=== PATIENT | female | born 1970 | race Hispanic/Latino ===

== ENCOUNTER 2020-07-26 | Emergency (ER) | payer SELFPAY ==
[~2020-07-26] MED LIST: ASPIRIN81 MG PO; GLIMEPIRIDE2 MG PO; KEFLEX500 M1 PO; LISINOPRIL5 MG PO; METFORMIN1000 MG PO; MULTIVITAMIN PO; PRILOSEC40 MG PO; ULTRAM50 M1 PO
[2020-07-26] MEDS ORDERED: FOLIC ACID1 MG PO (08:40)
[2020-07-26] MEDS ORDERED: GABAPENTIN100 MG PO (08:41)
[2020-07-26] MEDS ORDERED: CELEBREX100 M1 PO (08:41)
[2020-07-26 08:51] LABS: HEMATOCRIT 32.5 % (37.0-47.0); IMMATURE GRANULOCYTES 0.3 % (0.0-5.0); MEAN CORPUSCULAR HGB 22.5 pG CALC (26.0-32.0); MEAN CORPUSCULAR HGB CONC 30.2 g/dL CAL (32.0-36.0); NEUT# 4.53 thou/uL (2.00-7.15); RED BLOOD COUNT 4.36 mill/uL (4.20-5.60); RED CELL DISTRI WIDTH 18.9 % (11.5-15.5)
[2020-07-26 08:56] LABS: URINE BILIRUBIN - DIPSTICK NEGATIVE (NEGATIVE); URINE BLOOD DIPSTICK NEGATIVE (NEGATIVE); URINE COLOR YELLOW; URINE GLUCOSE - DIPSTICK >=1000 mg/dL (NEGATIVE); URINE KETONE NEGATIVE (NEGATIVE); URINE LEUK ESTERASE NEGATIVE (NEGATIVE); URINE PH 6.5 (4.5-8.0); URINE PROTEIN - DIPSTICK NEGATIVE (NEG-TRACE); URINE SPECIFIC GRAVITY <=1.005; URINE UROBILINOGEN - DIPSTICK 0.2 E.U./dL (0.2)
[2020-07-26 08:58] LABS: URINE NITRITE - DIPSTICK NEGATIVE (Negative)
[2020-07-26 08:59] LABS: HEMOGLOBIN 9.8 g/dl (12.0-16.0); MEAN CELL VOLUME 74.5 fL CALC (80.0-100.0)
[2020-07-26 09:10] LABS: ALBUMIN 4.6 g/dL (3.2-5.0); ALKALINE PHOSPHATASE 124 u/l (38-126); BILIRUBIN, TOTAL 0.7 mg/dL (0.0-1.4); BUN 9 mg/dL (7-17); BUN/CREATININE RATIO 27 (12-20 (CALC)); CHLORIDE 96 mmol/l (95-108); CREATININE 0.3 mg/dL (0.5-1.0); GFR > 60 ML/MIN (>=60 (CALC)); GFR FOR AFR.AMER. > 60 ML/MIN (>=60 (CALC)); POTASSIUM 4.2 mmol/l (3.5-5.1); SGOT/AST 22 u/l (14-36); SODIUM 132 mmol/l (137-146)
[2020-07-26 09:11] LABS: ANION GAP 12 (6-22 (CALC)); CARBON DIOXIDE 28 mmol/l (22-30)
[2020-07-26] MEDS ORDERED: AMOXICILLIN875 MG PO (09:30)
[2020-07-26] MEDS ORDERED: ULTRAM50 MG PO (09:30)
== END 2020-07-26 09:49 | disposition home or self-care (01) | DRG 153 ==
DX: J02.9 Acute pharyngitis, unspecified (principal); E11.65 Type 2 diabetes mellitus with hyperglycemia; M79.672 Pain in left foot; M79.671 Pain in right foot; M79.605 Pain in left leg; M79.604 Pain in right leg; M79.602 Pain in left arm; M79.601 Pain in right arm; M25.562 Pain in left knee; M25.561 Pain in right knee; Z79.84 Long term (current) use of oral hypoglycemic drugs; Z20.822 Contact with and (suspected) exposure to COVID-19

== ENCOUNTER 2022-07-29 17:24 | Emergency (ER) | payer SELFPAY ==
[2022-07-29] VITALS (15 sets, daily range): BP systolic 88–120; BP diastolic 51–104
[~2022-07-29] VITALS: Ht 157.5 cm; Wt 63.6 kg
[~2022-07-29 17:24] MED LIST changes: +AMOXICILLIN875 MG PO; +CELEBREX100 M1 PO; +FOLIC ACID1 MG PO; +GABAPENTIN100 MG PO; +ULTRAM50 MG PO
[2022-07-29 19:18] LABS: BASO% 0.2 % (0-3); EOS% 2.7 % (0-8); IMMATURE GRANULOCYTES 0.2 % (0.0-5.0); LYMPH% 33.7 % (15-41); MEAN CORPUSCULAR HGB 26.2 pG CALC (26.0-32.0); MEAN CORPUSCULAR HGB CONC 31.7 g/dL CAL (32.0-36.0); MONO% 8.1 % (2-13); NEUT# 2.85 thou/uL (2.00-7.15); NEUT% 55.1 % (42-76); RED BLOOD COUNT 4.96 mill/uL (4.20-5.60); RED CELL DISTRI WIDTH 16.7 % (11.5-15.5)
[2022-07-29 19:31] LABS: MEAN CELL VOLUME 82.7 fL CALC (80.0-100.0)
[2022-07-29 19:45] LABS: ALBUMIN 4.9 g/dL (3.2-5.0); ALKALINE PHOSPHATASE 112 u/l (38-126); BILIRUBIN, TOTAL 0.6 mg/dL (0.02-1.3); BUN 13 mg/dL (7-17); BUN/CREATININE RATIO 22 (12-20 (CALC)); CHLORIDE 102 mmol/l (95-108); CREATININE 0.6 mg/dL (0.5-1.0); GFR FOR AFR.AMER. > 60 ML/MIN (>=60 (CALC)); GFR OTHER RACES > 60 ML/MIN (>=60 (CALC)); LIPASE 84 u/l (23-300); POTASSIUM 4.3 mmol/l (3.5-5.1); SODIUM 135 mmol/l (137-146); TOTAL PROTEIN 8.9 g/dL (6.3-8.2)
[2022-07-29 19:51] LABS: ANION GAP 16 (6-22 (CALC)); CARBON DIOXIDE 21 mmol/l (22-30); SGOT/AST 44 u/l (14-36)
[2022-07-29 21:08] LABS: URINE BILIRUBIN - DIPSTICK NEGATIVE (NEGATIVE); URINE BLOOD DIPSTICK NEGATIVE (NEGATIVE); URINE COLOR YELLOW; URINE GLUCOSE - DIPSTICK >=1000 mg/dL (NEGATIVE); URINE KETONE NEGATIVE (NEGATIVE); URINE LEUK ESTERASE NEGATIVE (NEGATIVE); URINE PROTEIN - DIPSTICK NEGATIVE (NEG-TRACE); URINE SPECIFIC GRAVITY <=1.005; URINE UROBILINOGEN - DIPSTICK 0.2 E.U./dL (0.2)
[2022-07-29 21:12] LABS: URINE NITRITE - DIPSTICK POSITIVE (Negative)
[2022-07-29 21:20] LABS: URINE BACTERIA RARE hpf; URINE RBC 0-2 RBC/hpf (0-5); URINE SQUAMOUS EPITHELIAL CELL RARE EPI/hpf (0-FEW); URINE WBC 0-2 WBC/hpf (0-5)
--- NOTE | 2022-07-31 17:01 | NUR ---
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 Pt states no new symptoms and she already as follow up appointment schedule with per primary doctor.
--- NOTE | 2022-08-01 10:44 | NUR ---
FINAL BLOOD CULTURE SHOWS STAPH CAPITIS IN 1/4 VIALS. NO CHANGES NEEDED. Patient reports feeling better.
== END 2022-07-29 23:30 | disposition home or self-care (01) | DRG 392 ==
LOC: ED 17:24
PROVIDERS: Nurse Practitioner
DX: R11.2 Nausea with vomiting, unspecified (principal); R19.7 Diarrhea, unspecified; E11.9 Type 2 diabetes mellitus without complications; Z79.84 Long term (current) use of oral hypoglycemic drugs
CPT/HCPCS: Q9967

== ENCOUNTER 2023-11-20 15:56 | Inpatient (IN) | payer SELFPAY ==
[~2023-11-20] VITALS: Ht 157.5 cm; Wt 82.5 kg
[2023-11-20] MEDS ORDERED: SODIUM CHLORIDE 0.9% 1,000 ML IV ONE ×3 (16:40→21:00)
[2023-11-20] MEDS ORDERED: KETOROLAC TROMETHAMINE 30 MG/ML SDV IV ONE (16:40)
[2023-11-20] MEDS ORDERED: ACETAMINOPHEN 500 MG TAB PO ONE (16:40)
[2023-11-20 16:50] LABS: BASO% 0.1 % (0-3); EOS% 0.4 % (0-8); HEMATOCRIT 36.5 % (37.0-47.0); HEMOGLOBIN 11.8 g/dl (12.0-16.0); IMMATURE GRANULOCYTES 0.3 % (0.0-5.0); LYMPH% 14.2 % (15-41); MEAN CELL VOLUME 81.5 fL CALC (80.0-100.0); MEAN CORPUSCULAR HGB 26.3 pG CALC (26.0-32.0); MEAN CORPUSCULAR HGB CONC 32.3 g/dL CAL (32.0-36.0); NEUT# 5.79 thou/uL (2.00-7.15); RED BLOOD COUNT 4.48 mill/uL (4.20-5.60); RED CELL DISTRI WIDTH 15.7 % (11.5-15.5); URINE BILIRUBIN - DIPSTICK Negative (NEGATIVE); URINE BLOOD DIPSTICK Trace-intact (NEGATIVE); URINE GLUCOSE - DIPSTICK 500 mg/dL (NEGATIVE); URINE KETONE 40 mg/dL (NEGATIVE); URINE LEUK ESTERASE Negative (NEGATIVE); URINE NITRITE - DIPSTICK Negative (Negative); URINE PROTEIN - DIPSTICK Negative (NEG-TRACE); URINE UROBILINOGEN - DIPSTICK 0.2 E.U./dL (0.2)
[2023-11-20 16:51] LABS: URINE COLOR Yellow
[2023-11-20 17:01] LABS: ALBUMIN 4.6 g/dL (3.2-5.0); BILIRUBIN, TOTAL 0.6 mg/dL (0.02-1.3); CREATININE 0.5 mg/dL (0.5-1.0); POTASSIUM 3.4 mmol/l (3.5-5.1); TOTAL PROTEIN 8.7 g/dL (6.3-8.2)
[2023-11-20] MEDS ORDERED: cefTRIAXone SODIUM 2 GM in SODIUM CHLORIDE 0.9% 100 ML IV ONE (18:25)
[2023-11-20] MEDS ORDERED: LACTATED RINGER'S 1,000 ML IV PRN (20:50)
[2023-11-20] MEDS ORDERED: ACETAMINOPHEN 325 MG/TAB PO PRN (20:55)
[2023-11-20] MEDS ORDERED: SODIUM CHLORIDE 0.9% 1,000 ML IV PRN (20:55)
[2023-11-20] MEDS ORDERED: MAGNESIUM HYDROXIDE 30 ML UDC PO PRN (20:55)
[2023-11-20] MEDS ORDERED: DEXTROSE 250 ML IV PRN (20:55)
[2023-11-20] MEDS ORDERED: ENOXAPARIN SODIUM 40 MG/0.4 ML SYR SC SCH (21:00)
[2023-11-20] MEDS ORDERED: INSULIN LISPRO 100 UNITS/ML ML SC SCH (21:00)
[2023-11-20 21:50] VITALS: BP 116/60
[2023-11-20 23:15] VITALS: BP 125/55
[2023-11-21 03:36] VITALS: BP 83/36
[2023-11-21 03:37] VITALS: BP 91/39
[2023-11-21 07:09] VITALS: BP 102/59
[2023-11-21] MEDS ORDERED: GABAPENTIN 100 MG/CAP PO SCH (09:00)
[2023-11-21 09:47] LABS: HEMATOCRIT 34.8 % (37.0-47.0); HEMOGLOBIN 10.9 g/dl (12.0-16.0); MEAN CELL VOLUME 83.9 fL CALC (80.0-100.0); MEAN CORPUSCULAR HGB 26.3 pG CALC (26.0-32.0); MEAN CORPUSCULAR HGB CONC 31.3 g/dL CAL (32.0-36.0); RED BLOOD COUNT 4.15 mill/uL (4.20-5.60); RED CELL DISTRI WIDTH 16.1 % (11.5-15.5)
[2023-11-21 10:35] LABS: ALBUMIN 3.8 g/dL (3.2-5.0); BILIRUBIN, TOTAL 0.8 mg/dL (0.02-1.3); CREATININE 0.4 mg/dL (0.5-1.0); POTASSIUM 3.3 mmol/l (3.5-5.1); TOTAL PROTEIN 7.4 g/dL (6.3-8.2)
[2023-11-21 10:55] LABS: C-REACTIVE PROTEIN 19.6 mg/dL (0-0.9)
[2023-11-21 11:12] VITALS: BP 100/53
[2023-11-21] MEDS ORDERED: POTASSIUM CHLORIDE 20 MEQ/TAB PO SCH (11:30)
[2023-11-21] MEDS ORDERED: VANCOMYCIN HCL 1 GM in SODIUM CHLORIDE 0.9% 250 ML IV SCH (12:00)
[2023-11-21 15:02] VITALS: BP 116/62
[2023-11-21] MEDS ORDERED: cefTRIAXone SODIUM 2 GM in SODIUM CHLORIDE 0.9% 100 ML IV SCH (18:00)
[2023-11-21 18:33] VITALS: BP 139/70
[2023-11-22] VITALS (8 sets, daily range): BP systolic 108–133; BP diastolic 53–65
[2023-11-22 04:55] LABS: HEMATOCRIT 36.7 % (37.0-47.0); HEMOGLOBIN 11.3 g/dl (12.0-16.0); MEAN CELL VOLUME 86.8 fL CALC (80.0-100.0); MEAN CORPUSCULAR HGB 26.7 pG CALC (26.0-32.0); MEAN CORPUSCULAR HGB CONC 30.8 g/dL CAL (32.0-36.0); RED BLOOD COUNT 4.23 mill/uL (4.20-5.60); RED CELL DISTRI WIDTH 16.2 % (11.5-15.5)
[2023-11-22 05:12] LABS: BILIRUBIN, TOTAL 0.5 mg/dL (0.02-1.3); CREATININE 0.4 mg/dL (0.5-1.0); MAGNESIUM 1.7 mg/dL (1.6-2.3); TOTAL PROTEIN 7.5 g/dL (6.3-8.2)
[2023-11-22 05:22] LABS: POTASSIUM 4.2 mmol/l (3.5-5.1)
[2023-11-22] MEDS ORDERED: DIATRIZOATE MEGLUMINE & SODIUM 30 ML/BTL BTL PO SCH (10:00)
[2023-11-22] MEDS ORDERED: PIPERACILLIN Sodium-Tazobactam 4.5 GM in SODIUM CHLORIDE 0.9% 100 ML IV SCH (12:00)
[2023-11-22 18:50] LABS: ALBUMIN 3.7 g/dL (3.2-5.0); BILIRUBIN, TOTAL 0.5 mg/dL (0.02-1.3); CREATININE 0.6 mg/dL (0.5-1.0); TOTAL PROTEIN 7.2 g/dL (6.3-8.2)
[2023-11-23] VITALS (8 sets, daily range): BP systolic 117–153; BP diastolic 58–74
[2023-11-23 05:05] LABS: HEMATOCRIT 33.7 % (37.0-47.0); HEMOGLOBIN 10.6 g/dl (12.0-16.0); MEAN CELL VOLUME 82.4 fL CALC (80.0-100.0); MEAN CORPUSCULAR HGB 25.9 pG CALC (26.0-32.0); MEAN CORPUSCULAR HGB CONC 31.5 g/dL CAL (32.0-36.0); RED BLOOD COUNT 4.09 mill/uL (4.20-5.60); RED CELL DISTRI WIDTH 15.7 % (11.5-15.5)
[2023-11-23 05:29] LABS: ALBUMIN 3.6 g/dL (3.2-5.0); BILIRUBIN, TOTAL 0.6 mg/dL (0.02-1.3); CREATININE 0.4 mg/dL (0.5-1.0); MAGNESIUM 1.7 mg/dL (1.6-2.3); POTASSIUM 3.8 mmol/l (3.5-5.1)
[2023-11-23] MEDS ORDERED: IRON SUCROSE COMPLEX 200 MG in SODIUM CHLORIDE 0.9% 100 ML IV SCH (10:45)
[2023-11-23] MEDS ORDERED: cefTRIAXone SODIUM 2 GM in SODIUM CHLORIDE 0.9% 100 ML IV SCH (12:00)
[2023-11-24] VITALS: BP 131/69
[2023-11-24 04:00] VITALS: BP 141/74
[2023-11-24 04:12] VITALS: BP 141/74
[2023-11-24 05:20] LABS: BASO% 0.5 % (0-3); EOS% 1.3 % (0-8); HEMATOCRIT 32.5 % (37.0-47.0); HEMOGLOBIN 10.5 g/dl (12.0-16.0); IMMATURE GRANULOCYTES 0.3 % (0.0-5.0); LYMPH% 31.7 % (15-41); MEAN CELL VOLUME 81.9 fL CALC (80.0-100.0); MEAN CORPUSCULAR HGB 26.4 pG CALC (26.0-32.0); MEAN CORPUSCULAR HGB CONC 32.3 g/dL CAL (32.0-36.0); MONO% 12.9 % (2-13); NEUT# 2.1 thou/uL (2.00-7.15); NEUT% 53.3 % (42-76); RED BLOOD COUNT 3.97 mill/uL (4.20-5.60); RED CELL DISTRI WIDTH 15.8 % (11.5-15.5)
[2023-11-24 05:48] LABS: ALBUMIN 3.6 g/dL (3.2-5.0); BILIRUBIN, TOTAL 0.5 mg/dL (0.02-1.3); CREATININE 0.3 mg/dL (0.5-1.0); MAGNESIUM 1.7 mg/dL (1.6-2.3); POTASSIUM 3.8 mmol/l (3.5-5.1); TOTAL PROTEIN 6.9 g/dL (6.3-8.2)
[2023-11-24 06:54] VITALS: BP 136/71
[2023-11-24] MEDS ORDERED: LEVOFLOXACIN750 MG PO (09:37)
[2023-11-24 11:00] VITALS: BP 126/59
== END 2023-11-24 15:11 | disposition home or self-care (01) | DRG 872 ==
LOC: ED 15:56 → ED-I 18:35 → ED 18:50 → MS2 18:50
PROVIDERS: Family Medicine; Nurse Practitioner Family; ADMIT Internal Medicine; ATTEND Internal Medicine
DX: A41.51 Sepsis due to Escherichia coli [E. coli] (principal); E87.20 Acidosis, unspecified; R65.20 Severe sepsis without septic shock; I95.9 Hypotension, unspecified; M25.59 Pain in other specified joint; E11.9 Type 2 diabetes mellitus without complications; M19.90 Unspecified osteoarthritis, unspecified site; Z79.84 Long term (current) use of oral hypoglycemic drugs; Z20.822 Contact with and (suspected) exposure to COVID-19
CPT/HCPCS: J1650; Q9967